=== PATIENT | male | born 1945 | race Caucasian/White ===

== ENCOUNTER → 2020-10-08 | Outpatient (CLI) | payer OTHER ==
[~2020-10-08] MED LIST: ATOR20; ATORVASTATIN CA40 M1 PO; AZIT250; EPIPEN0.3 MG/0.3 IM; FOLI1; Flomax0.4 MG; Glycotrol Caps1 EACH; Hydrocodone-Ap1 EA23; KRILL OIL500 MG; META800; METAXALONE400 MG; TAMS.4ER PO; THERALITH XR T1 EACH; XYZAL5 MG PO; ZOLP10; ZOLP10 PO
[2020-10-08 14:20] LABS: C DIFFICILE DNA NEGATIVE (Negative)
== END | disposition home or self-care (01) ==
LOC: LAB SHORT 11:41 → LAB 11:41
PROVIDERS: Internal Medicine
DX: R19.7 Diarrhea, unspecified (principal)
CPT/HCPCS: 87015; 87116; 87177; 87206; 87209; 87329; 87493

== ENCOUNTER 2020-10-14 10:56 | Day surgery (SDC) | payer OTHER ==
[~2020-10-14] VITALS: Ht 172.7 cm; Wt 76.5 kg
[~2020-10-14 10:56] MED LIST changes: -AZIT250; -META800
[2020-10-14] MEDS ORDERED: META800 (11:46)
[2020-10-14] MEDS ORDERED: AZIT250 (11:46)
== END 2020-10-14 13:14 | disposition home or self-care (01) ==
LOC: ORSCSDS 10:56
PROVIDERS: Internal Medicine Gastroenterology
PROC: 0DBE8ZX Excision of Large Intestine, Via Natural or Artificial Opening Endoscopic, Diagnostic (ICD-10-PCS; principal; 2020-10-14 12:15)
DX: R19.7 Diarrhea, unspecified (principal); K52.832 Lymphocytic colitis; E78.5 Hyperlipidemia, unspecified; K57.30 Diverticulosis of large intestine without perforation or abscess without bleeding; K64.8 Other hemorrhoids; Z79.899 Other long term (current) drug therapy
CPT/HCPCS: 88305; 88313; J2250; J2405; J2704; J7120

== ENCOUNTER → 2020-10-19 | Outpatient (CLI) | payer OTHER ==
[~2020-10-19] MED LIST changes: +AZIT250; +META800
== END | disposition home or self-care (01) ==
LOC: LAB 07:31 → LAB SHORT 07:31
DX: L82.1 Other seborrheic keratosis (principal)
CPT/HCPCS: 88305

== ENCOUNTER → 2021-05-15 | Outpatient (CLI) | payer OTHER | LOC: LAB SHORT 15:00 | DX: H60.502 Unspecified acute noninfective otitis externa, left ear (principal) | CPT/HCPCS: 87070; 87077; 87186; 87205 ==

== ENCOUNTER 2025-05-09 09:44 | Day surgery (SDC) | payer OTHER ==
[~2025-05-09] VITALS: Ht 172.7 cm; Wt 73.6 kg
[~2025-05-09 09:44] MED LIST changes: +Bupivacaine 0.5% W/EPI 1:200000 SDV 30 ML Vial ONE
[2025-05-09] MEDS ORDERED: CeFAZolin Sodium 2,000 MG VIAL ONE (09:57)
[2025-05-09] MEDS ORDERED: FentaNYL Citrate 50 MCG/ML 2 ML Injection ONE ×2 (10:44→11:46)
[2025-05-09] MEDS ORDERED: Dexamethasone Sod Phos 10 MG/ML 1ML VIAL ONE (10:53)
[2025-05-09] MEDS ORDERED: Ondansetron HCl 2 MG / ML 2ML Vial ONE (10:53)
--- NOTE | 2025-05-09 12:59 | NUR ---
05/09/[address] PULLED LMA WHEN PT ENTERED PACU. HAD TO MOVE PULSE OX TO TOE PT MOVING AROUND QUITE A BIT. NEEDING TO REMIND PT NOT TO CROSS LEGS AT PRESENT. PULLING BANDAGE OFF WITH MOVEMENT
--- NOTE | 2025-05-09 13:23 | NUR ---
05/09/25 1274 [address] ONCE PT UP INTO RECLINER, PT MENTIONS THAT HE NEEDS TO GO TO THE BATHROOM. 2 PERSON INTO RECLINER, 2 PERSON IN THE BATHROOM AND BACK INTO CHAIR. PT CURRENTLY EATING APPLE SAUCE. PT STATES PAIN IS ABOUT A 3 OR 4/10 PLAN IS TO GIVE PO PAIN MEDICATION
[2025-05-09] MEDS ORDERED: OxyCODONE 5 mg/Acetamin 325 mg TABLET ONE (13:31)
[2025-05-09 13:39] VITALS: BP 163/81
== END 2025-05-09 14:04 | disposition home or self-care (01) ==
LOC: ORSCSDS 09:44
DX: M21.611 Bunion of right foot (principal); M20.41 Other hammer toe(s) (acquired), right foot; I10 Essential (primary) hypertension; E78.5 Hyperlipidemia, unspecified; Z85.528 Personal history of other malignant neoplasm of kidney; Z79.899 Other long term (current) drug therapy; Z87.891 Personal history of nicotine dependence
CPT/HCPCS: A6253; A9270; C1713; J0690; J1100; J2405; J2704; J3010; J7120